=== PATIENT | female | born 1960 ===

== ENCOUNTER 2018-08-12 14:28 | Outpatient (CLI) | payer OTHER ==
[~2018-08-12] VITALS: Ht 160 cm; Wt 60.8 kg
== END 2018-08-12 14:45 | disposition home or self-care (01) ==
LOC: OFIC 805 14:28
DX: J30.89 Other allergic rhinitis (principal); D35.1 Benign neoplasm of parathyroid gland

== ENCOUNTER 2018-10-15 13:11 | Outpatient (CLI) | payer OTHER ==
[2018-10-18] MEDS ORDERED: VITAMIN D400 UNI2 PO (11:13)
[2018-10-18] MEDS ORDERED: ZOCOR20 MG PO (11:13)
== END 2018-10-15 13:23 | disposition home or self-care (01) ==
LOC: LAB 13:11
DX: E21.0 Primary hyperparathyroidism (principal)

== ENCOUNTER 2018-10-23 05:30 | Day surgery (SDC) | payer OTHER ==
[~2018-10-23 05:30] MED LIST: VITAMIN D400 UNI2 PO; ZOCOR20 MG PO
[2018-10-23] MEDS ORDERED: PERCOCET 5-3251 EACH PO (09:11)
== END 2018-10-23 13:30 | disposition home or self-care (01) ==
LOC: CIR.AMB 05:30
DX: D35.1 Benign neoplasm of parathyroid gland (principal)